=== PATIENT | female | born 1955 | race Hispanic/Latino ===

== ENCOUNTER → 2018-05-05 | Outpatient (CLI) | payer MEDICARE, BC | LOC: CARDIO 13:49 ==

== ENCOUNTER 2018-05-26 13:29 | Outpatient (CLI) | payer MEDICARE, BC | END 2018-05-26 13:30 | disposition home or self-care (01) | LOC: RAD 13:29 | DX: G89.4 Chronic pain syndrome (principal); M12.9 Arthropathy, unspecified ==